=== PATIENT | male | born 1995 | race Caucasian/White ===

== ENCOUNTER → 2019-03-11 | Outpatient (CLI) | payer BC ==
[2013-03-14 15:24] VITALS: BP 142/70
[~2019-03-11] MED LIST: CEPHALEXIN500 M1 PO; CIPRO 250MG TA250 MG PO; CIPRO 500MG TA500 MG PO; NO HOME MEDICATIONS; NORCO 325 MG-51 TAB PO; PREDNISONE20 M1 PO
[2019-03-11 13:19] LABS: HEMATOCRIT 47.5 % (42.0-52.0); HEMOGLOBIN 16.5 g/dL (13.5-18.0); MEAN CELL VOLUME 87 fl (78-100); MEAN CORPUSCULAR HEMOGLOBIN 30 pg (27-31); MEAN CORPUSCULAR HGB CONC 35 g/dL (33-37); MEAN PLATELET VOLUME 10.4 fl (7.4-10.4); PLATELET COUNT 270 K/mm3 (130-400); RED BLOOD COUNT 5.46 M/mm3 (4.20-5.60); RED CELL DISTRIBUTION WIDTH 12.7 % (11.5-14.5); WHITE BLOOD COUNT 5.3 K/mm3 (4.8-10.8)
[2019-03-11 13:25] LABS: ALBUMIN 4.6 g/dL (3.5-5.0); POTASSIUM 4.3 mmol/L (3.5-5.1)
[2019-03-11 13:27] LABS: CALCIUM 9.8 mg/dL (8.3-10.5)
[2019-03-11 13:28] LABS: TOTAL PROTEIN 7.9 g/dL (6.4-8.3)
[2019-03-11 13:30] LABS: TOTAL BILIRUBIN 0.8 mg/dL (0.2-1.2)
[2019-03-11 13:32] LABS: URINE APPEARANCE HAZY; URINE BILIRUBIN NEGATIVE (NEGATIVE); URINE BLOOD NEGATIVE (NEGATIVE); URINE COLOR DARKY YELLOW; URINE GLUCOSE NEGATIVE (NEGATIVE); URINE KETONE NEGATIVE (NEGATIVE); URINE LEUKOCYTE ESTERASE NEGATIVE (NEGATIVE); URINE MUCUS PRESENT (NOT PRESENT); URINE NITRATE NEGATIVE (NEGATIVE); URINE PROTEIN(semi-quant) TRACE mg/dL (NEGATIVE); URINE UROBILINOGEN NORMAL (NORMAL)
[2019-03-11 13:38] LABS: LYMPHOCYTE 44 % (20-51); MONOCYTE 10 % (3-10); NEUTROPHILS 40 % (42-75)
== END ==
LOC: LAB 13:04
PROVIDERS: Nurse Practitioner Family
DX: R10.84 Generalized abdominal pain (principal)

== ENCOUNTER → 2019-04-05 | Day surgery (SDC) | payer BC ==
[2013-03-14 15:24] VITALS: BP 142/70
== END ==
LOC: MSO 07:31
DX: K29.70 Gastritis, unspecified, without bleeding (principal); K29.80 Duodenitis without bleeding; J85.1 Abscess of lung with pneumonia; F98.8 Other specified behavioral and emotional disorders with onset usually occurring in childhood and adolescence; F90.9 Attention-deficit hyperactivity disorder, unspecified type; Z86.14 Personal history of Methicillin resistant Staphylococcus aureus infection; Z88.1 Allergy status to other antibiotic agents
CPT/HCPCS: 00731; J2704; J7120

== ENCOUNTER → 2020-10-03 | Outpatient (CLI) | payer BC ==
[2013-03-14 15:24] VITALS: BP 142/70
== END ==
LOC: RAD 08:54
DX: R19.7 Diarrhea, unspecified (principal); R10.11 Right upper quadrant pain